=== PATIENT | female | born 1980 | race American Indian/Alaskan Native ===

== ENCOUNTER 2018-11-28 13:11 | Emergency (ER) | payer MEDICAID, OTHER ==
[2018-11-28 13:19] VITALS: BP 150/51
--- NOTE | 2018-11-28 14:34 | Emergency Department Report ---
HPI - General Chief Complaint: Extremity Injury, Lower Time Seen by Provider: 11/28/18 14:18 - HPI HPI: This is a 38-year-old female presents complaining of right knee pain that happened around 11 PM last night. Patient states she was walking to her car when the pain out of nowhere just started. Patient states pain is localized to her right knee. Patient denies any injury or trauma or fall to the knee. Patient states that pain is worsened with movement and applied pressure. ED Past Medical Hx - Past Medical History Previous Medical History?: No - Surgical History Hx Cholecystectomy: Yes Additional Surgical History: birht control implant DELMA - Social History Smoking Status: Never Smoker Substance Use Type: None - Medications Home Medications: Home Medications Medication Instructions Recorded Confirmed Last Taken Type Acyclovir [Zovirax] 1 applic TP TID #1 tube 10/12/18 Unknown Rx Meloxicam [Mobic] 7.5 mg PO BID #30 tablet 11/28/18 Unknown Rx Tizanidine HCl [Zanaflex] 2 mg PO BID PRN #20 capsule 11/28/18 Unknown Rx ED Review of Systems ROS: Stated complaint: KNEE PAIN Other details as noted in HPI Comment: All other systems reviewed and negative Physical Exam - Physical Exam Vital Signs: Vital Signs 11/28/18 13:17 Temperature 97.7 F Pulse Rate 77 Respiratory 18 Rate Blood Pressure 150/51 O2 Sat by Pulse 98 Oximetry Physical Exam: GENERAL: Alert and oriented x3, no apparent distress, Normal Gait, atraumatic. HEAD: Head is normocephalic and a-traumatic. LUNGS: Symetrical with respiration, No wheezing, no rales or crackles, CTAB. HEART: S1, S2 present, regular rate and rhythm without murmur, no rubs, no gallops. EXTREMITIES/MUSCULOSKELETAL: No cyanosis, clubbing, rash, lesions or edema. Full ROM bilaterally. LE Pulses 2+ bilaterally. LE and UE 5+ strength medial aspect of the right knee tenderness to palpation. Nonswollen, nonerythematous bilaterally, patient has some pain with flexion and extension of the knee. Valgus and varus test negative. NEUROLOGIC: The patient is cooperative with no focal neurologic deficits. SKIN: Warm and dry, No lesions, No ulceration or induration present. ED Course Vital Signs 11/28/18 13:17 Temperature 97.7 F Pulse Rate 77 Respiratory 18 Rate Blood Pressure 150/51 O2 Sat by Pulse 98 Oximetry ED Medical Decision Making - Radiology Data Radiology results: report reviewed, image reviewed FINAL REPORT EXAM: XR KNEE 3V RT HISTORY: knee pain TECHNIQUE: 3 views of the right knee PRIORS: None. FINDINGS: Nonspecific lucency is noted in the subarticular surface of the upper patella. Sagittal dimension 10 mm and transverse dimension approximately 20 mm. This may be a degenerative subchondral geode. Differential includes focal lytic region from chondromalacia patella. Slight degenerative articular surface irregularity of medial and lateral femorotibial joints as well as patellofemoral joint. Slight medial femorotibial joint space narrowing. No evidence of acute fracture or dislocation. No radiographically visible joint effusion. IMPRESSION: Retropatellar lucency may be a degenerative subchondral geode. Differential includes focal lytic region from chondromalacia patella Degenerative changes and joint space narrowing Transcribed By: IVAN Dictated By: MÓNICA SEPULVEDA MD Electronically Authenticated By: MÓNICA SEPULVEDA MD Signed Date/Time: 11/28/18 1516 - Medical Decision Making 38-year-old female presents with right knee degenerative sees. Knee x-ray shows degenerative disorder. Discussed findings the patient. Discussed the patient's urinalysis is specialist orthopedic. Referrals were given. Discussed the patient will give pain medication and she will need to follow-up. Vital signs are normal patient is in no acute distress. Critical care attestation.: If time is entered above; I have spent that time in minutes in the direct care of this critically ill patient, excluding procedure time. ED Disposition Clinical Impression: Degenerative joint disease of knee, right Disposition: [id number] TO HOME OR SELFCARE Is pt being admited?: No Does the pt Need Aspirin: No Condition: Stable Instructions: Knee Pain (ED), Knee Exercises (GEN) Additional Instructions: Make sure to follow up with the primary care physician as discussed. Take all your medications as you've been prescribed. If you have any worsening symptoms or develop new symptoms please return to ED immediately. Prescriptions: Meloxicam [Mobic] 7.5 mg PO BID #30 tablet Tizanidine HCl [Zanaflex] 2 mg PO BID PRN #20 capsule PRN Reason: Muscle Spasm Referrals: ZINA GARCIA MD [Primary Care Provider] - 3-5 Days BELLO MCKEON MD [Staff Physician] - 3-5 Days Forms: Work/School Release Form Time of Disposition: 15:38
--- NOTE | 2018-11-28 15:16 | XRay Report ---
FINAL REPORT EXAM: XR KNEE 3V RT HISTORY: knee pain TECHNIQUE: 3 views of the right knee PRIORS: None. FINDINGS: Nonspecific lucency is noted in the subarticular surface of the upper patella. Sagittal dimension 10 mm and transverse dimension approximately 20 mm. This may be a degenerative subchondral geode. Differ ential includes focal lytic region from chondromalacia patella. Slight degenerative articular surface irregularity of medial and lateral femorotibial joints as well as patellofemoral joint. Slight medial femorotibial joint space narrowing. No evidence of acute fract ure or dislocation. No radiographically visible joint effusion. IMPRESSION: Retropatellar lucency may be a degenerative subchondral geode. Differential includes focal lytic radha on from chondromalacia patella Degenerative changes and joint space narrowing
[2018-11-28] MEDS ORDERED: FLEXERIL PO ONE (15:57)
[2018-11-28] MEDS ORDERED: IBUPROFEN PO ONE (15:57)
[2018-11-28] MEDS ORDERED: FLEXERIL ONE (16:00)
[2018-11-28] MEDS ORDERED: IBUPROFEN ONE (16:00)
== END 2018-11-28 15:49 | disposition home or self-care (01) ==
LOC: ED 13:11
DX: M17.11 Unilateral primary osteoarthritis, right knee (principal); Z90.49 Acquired absence of other specified parts of digestive tract; Z88.0 Allergy status to penicillin; Z91.013 Allergy to seafood
CPT/HCPCS: 99283

== ENCOUNTER 2018-12-10 17:52 | Emergency (ER) | payer MEDICAID ==
[2018-12-10 18:11] VITALS: BP 129/74
[2018-12-10] MEDS ORDERED: IBUPROFEN PO STA (20:36)
--- NOTE | 2018-12-10 21:39 | Emergency Department Report ---
ED Headache HPI - General Chief Complaint: Headache Stated Complaint: LUMP ON HEAD Time Seen by Provider: 12/10/18 19:24 - History of Present Illness Initial Comments: 38-year-old obese [place] female to emergency department complaining of dull occipital region that is more tender to the touch anything else. She reports no scotomas, no presyncope, no coryza, no tinnitus or dizziness. She denies any head trauma. No new head injury, no new shampoos. She has not felt Rascher experience any discharge from that area. Timing/Duration: 24 hours Head Injury Location: occipital Recent Head Trauma: no recent headache/trauma Associated Symptoms: denies: fatigue, flushing, nausea/vomiting, nasal drainage, sinus infection, stiff neck Allergies/Adverse Reactions: Allergies Penicillins Allergy (Verified 11/28/18 13:17) Unknown shellfish derived Allergy (Verified 11/28/18 13:17) Unknown Home Medications: Ambulatory Orders Acyclovir [Zovirax] 1 applic TP TID #1 tube 10/12/18 Meloxicam [Mobic] 7.5 mg PO BID #30 tablet 11/28/18 Tizanidine HCl [Zanaflex] 2 mg PO BID PRN #20 capsule 11/28/18 Ketorolac [Toradol] 10 mg PO Q6H PRN #20 tablet 12/10/18 ED Review of Systems ROS: Stated complaint: LUMP ON HEAD Other details as noted in HPI Constitutional: denies: chills, fever Eyes: denies: eye pain, eye discharge, vision change ENT: denies: ear pain, throat pain Respiratory: denies: cough, shortness of breath, wheezing Cardiovascular: denies: chest pain, palpitations Endocrine: no symptoms reported Gastrointestinal: denies: abdominal pain, nausea, diarrhea Genitourinary: denies: urgency, dysuria, discharge Musculoskeletal: denies: back pain, joint swelling, arthralgia Skin: denies: rash, lesions Neurological: headache. denies: weakness, paresthesias Psychiatric: denies: anxiety, depression Hematological/Lymphatic: denies: easy bleeding, easy bruising ED Past Medical Hx - Past Medical History Previous Medical History?: No - Surgical History Hx Cholecystectomy: Yes Additional Surgical History: birht control implant DELMA - Social History Smoking Status: Never Smoker Substance Use Type: None - Medications Home Medications: Home Medications Medication Instructions Recorded Confirmed Last Taken Type Acyclovir [Zovirax] 1 applic TP TID #1 tube 10/12/18 Unknown Rx Meloxicam [Mobic] 7.5 mg PO BID #30 tablet 11/28/18 Unknown Rx Tizanidine HCl [Zanaflex] 2 mg PO BID PRN #20 capsule 11/28/18 Unknown Rx Ketorolac [Toradol] 10 mg PO Q6H PRN #20 tablet 12/10/18 Unknown Rx ED Physical Exam - General Limitations: No Limitations General appearance: alert, in no apparent distress - Head Head exam: Present: atraumatic, normocephalic - Eye Eye exam: Present: normal appearance, PERRL, EOMI, other (negative funduscopic examination). Absent: conjunctival injection, nystagmus Pupils: Present: normal accommodation - ENT ENT exam: Present: normal exam, mucous membranes moist, TM's normal bilaterally, normal external ear exam - Neck Neck exam: Present: normal inspection, full ROM. Absent: tenderness, meningismus, lymphadenopathy - Respiratory Respiratory exam: Present: normal lung sounds bilaterally. Absent: respiratory distress, wheezes, rales, rhonchi - Cardiovascular Cardiovascular Exam: Present: regular rate, normal rhythm. Absent: systolic murmur, diastolic murmur, rubs, gallop - GI/Abdominal GI/Abdominal exam: Present: soft, normal bowel sounds - Extremities Exam Extremities exam: Present: normal inspection - Back Exam Back exam: Present: normal inspection - Neurological Exam Neurological exam: Present: alert, oriented X3, CN II-XII intact, normal gait - Psychiatric Psychiatric exam: Present: normal affect, normal mood - Skin Skin exam: Present: warm, dry, intact, normal color. Absent: rash ED Course Vital Signs 12/10/18 12/10/18 18:08 21:35 Temperature 99.0 F Pulse Rate 71 80 Respiratory 16 16 Rate Blood Pressure 129/74 O2 Sat by Pulse 99 100 Oximetry Critical care attestation.: If time is entered above; I have spent that time in minutes in the direct care of this critically ill patient, excluding procedure time. ED Disposition Clinical Impression: Cephalgia, Scalp tenderness Disposition: - TO HOME OR SELFCARE Is pt being admited?: No Does the pt Need Aspirin: No Condition: Stable Instructions: Acute Headache (ED) Prescriptions: Ketorolac [Toradol] 10 mg PO Q6H PRN #20 tablet PRN Reason: Pain Referrals: PRIMARY CARE, [Primary Care Provider] - 3-5 Days [facility] [Provider Group] - 3-5 Days Forms: Accompanied Note, Work/School Release Form(ED)
== END 2018-12-10 21:35 | disposition home or self-care (01) ==
LOC: ED 17:52
DX: R51 Headache (principal); Z90.49 Acquired absence of other specified parts of digestive tract; Z91.013 Allergy to seafood; Z88.0 Allergy status to penicillin
CPT/HCPCS: 99282

== ENCOUNTER 2019-03-03 23:13 | Emergency (ER) | payer SELFPAY | END 2019-03-04 01:17 | disposition left against medical advice (07) | LOC: ED 23:13 | DX: R10.9 Unspecified abdominal pain (principal); Z53.21 Procedure and treatment not carried out due to patient leaving prior to being seen by health care provider ==